=== PATIENT | male | born 1955 | race Caucasian/White ===

== ENCOUNTER 2020-04-02 14:22 | Emergency (ER) | payer MEDICARE, SELFPAY ==
[2020-04-02] VITALS (21 sets, daily range): BP systolic 106–135; BP diastolic 64–78; PULSE 92–106; RESP 14–21; TEMP 36.7–37.2; O2SAT 93–100; BMI 24.3
--- NOTE | 2020-04-02 15:25 | DI.RAD.S_ITS ---
PROCEDURE: XR CHEST 2V INDICATIONS: SOB, previous fungal pneumonia, suspected splenomegally TECHNIQUE: 2 views of the chest were acquired. COMPARISON: [facility], CR, XR CHEST 2 VIEWS, 10/26/2019, 13:45. FINDINGS: Surgical changes and devices: None. Lungs and pleura: Lungs demonstrate scarring in the right lateral mid lung and diffuse prominence of the interstitium. No pleural effusions or pneumothorax. Mediastinum: Mediastinal contours are normal. Heart size is normal. No central venous congestion. Bones and chest wall: No suspicious bony abnormalities. Soft tissues appear unremarkable. IMPRESSION: 1. Chronic coarsening of the interstitial markings and scarring in the right mid lung. 2. No acute process. Dictated by: Deb Wynn M.D. on 04/02/2020 at 16:11 Approved by: Deb Wynn M.D. on 04/02/2020 at 16:13
--- NOTE | 2020-04-02 15:29 | DI.CT.S_ITS ---
PROCEDURE: CT ABDOMEN PELVIS W CON INDICATIONS: suspectected splenomegally, LUQ and LLQ tender mass TECHNIQUE: After the administration of intravenous contrast, 5 mm thick sections acquired from the diaphragm to the symphysis. 5 mm coronal and sagittal reformats were acquired. For radiation dose reduction, the following was used: automated exposure control, adjustment of mA and/or kV according to patient size. COMPARISON: [facility], CT, CT CHEST ABDOMEN PELVIS WITH CONTRAST, 08/29/2019, 15:25. [facility], CT, CT ANGIO CHEST PE, 10/10/2019, 17:57. [facility], CT, CT ABDOMEN PELVIS WITH CONTRAST, 02/20/2020, 14:17. FINDINGS: Image quality: Excellent. ABDOMEN: Lung bases: A subpleural density in the right lower lobe is most likely round atelectasis. Left basilar atelectasis or scars. Heart size is normal. Solid organs: Liver is moderately enlarged measuring 21.9 cm in length. Multiple hepatic cysts are present. Gallbladder contains gallstones. Biliary system is non dilated. Pancreas enhances normally. There is marked splenomegaly with spleen measuring 33.2 cm in length. There is mass effect with displacement of left kidney, pancreas, left adrenal and adjacent bowel loops. No adrenal nodules. Kidneys demonstrate normal size and enhancement, without hydronephrosis. Peritoneum and bowel: Bowel loops demonstrate normal wall thickness and caliber. There is a moderate amount of stool in colon. No free fluid or air. Nodes and vessels: Again noted are multiple enlarged periportal lymph nodes measuring up to 2.4 cm. Aorta and inferior vena cava are normal in size. Miscellaneous: No ventral hernias. PELVIS: Genitourinary: Bladder wall thickness is normal. Miscellaneous: No inguinal hernias or adenopathy. Bones: No suspicious bony lesions. No vertebral body compression fractures. IMPRESSION: 1. Marked splenomegaly which is unchanged from 02/20/2020. 2. Mild hepatomegaly. Multiple hepatic hypodensities are most likely cysts. 3. Periportal lymphadenopathy. This finding is nonspecific and may be secondary to infectious, inflammatory or neoplastic etiology. Recommend clinical correlation and follow up. 4. Cholelithiasis. Are well formed. 5. A subpleural nodular density in the right lung base is most likely round atelectasis. 6. A large amount of stool in colon. Dictated by: Kimberly Price M.D. on 04/02/2020 at 16:48 Approved by: Kimberly Price M.D. on 04/02/2020 at 17:04
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
[2020-04-02 16:10] LABS: INR 1.2 (0.9-1.3); Prothrombin Time 13.2 SECONDS (10.1-12.7)
[2020-04-02 16:12] LABS: PTT Partial Thromboplastin Tim 27 SECONDS (26.4-36.2)
[2020-04-02 16:24] LABS: Alanine Aminotransferase 10 IU/L (<50); Albumin 3.7 g/dL (3.5-5.0); Albumin Globulin Ratio 1.3 (1.0-2.8); Alkaline Phosphatase 197 U/L (38-126); Aspartate Aminotransferase 43 IU/L (17-59); Bilirubin Total 0.6 mg/dL (0.2-1.3); Blood Urea Nitrogen 26 mg/dL (9-20); Calcium 9.5 mg/dL (8.4-10.2); Carbon Dioxide 25 mmol/L (22-32); Chloride 103 mmol/L (98-107); Creatine Kinase 55 U/L (55-170); Estimated Glomerular Filt Rate > 60.0 mL/min (>60); Globulin 2.9 g/dL (1.7-4.1); Glucose 94 mg/dL (80-110); HEMOLYSIS < 15 (0-50); Lipase 185 U/L (23-300); Magnesium 1.7 mg/dL (1.6-2.3); Potassium 4.5 mmol/L (3.4-5.1); Sodium 135 mmol/L (137-145); Total Protein 6.6 g/dL (6.3-8.2)
[2020-04-02 16:36] LABS: NT-proBNP (BNP-Adult 18+) 266 pg/mL (<125); Troponin I < 0.012 ng/mL (0.01-0.034)
[2020-04-02 16:41] LABS: Hematocrit 22.6 % (41-53); Hemoglobin 7.2 g/dL (13.5-17.5); Mean Corpuscular HGB Conc 31.6 % (30-36); Mean Corpuscular Hemoglobin 24.6 PG (26-34); Mean Corpuscular Volume 77.8 fL (80-100); Platelet Count 78 X10^3/uL (150-400); Red Blood Cell Count 2.91 X10^6/uL (4.5-5.9); Red Cell Distribution Width 19.3 % (11.6-14.8); White Blood Cell Count 2.9 X10^3/uL (4.5-11.0)
[2020-04-02 16:45] LABS: Add Manual Diff / Slide Review YES
[2020-04-02 17:07] LABS: Reticulocyte Count, Percent 2.4 % (0.87-2.60)
[2020-04-02 17:33] LABS: Thyroid Stimulating Hormone 4.27 uIU/mL (0.47-4.68)
[2020-04-02 17:40] LABS: Neutrophils Absolute Manual 870 /uL (3000-5900); Total Cells Counted 100
[2020-04-02 17:41] LABS: Microcytosis 2+; Poikilocytosis 1+
[2020-04-02 17:42] LABS: Hypochromasia 1+; Ovalocytes 1+; Polychromasia 2+
[2020-04-02 17:43] LABS: Anisocytosis 1+; Platelet Estimate Decreased on smear
== END 2020-04-02 22:20 | disposition short-term general hospital (02) ==
PROVIDERS: Emergency Provider Emergency Medicine; PCP Family Medicine
DX: R19.02 Left upper quadrant abdominal swelling, mass and lump (principal); R16.1 Splenomegaly, not elsewhere classified; D61.818 Other pancytopenia; D50.9 Iron deficiency anemia, unspecified; R16.0 Hepatomegaly, not elsewhere classified; K80.80 Other cholelithiasis without obstruction; R79.89 Other specified abnormal findings of blood chemistry; R06.02 Shortness of breath
CPT/HCPCS: 36415; 71046; 74177; 80053; 82550; 83690; 83735; 83880; 84443; 84484; 85025; 85045; 85610; 85730; 93005; 99284